=== PATIENT | female | born 1965 | race Hispanic/Latino ===

== ENCOUNTER 2016-11-10 09:00 | Day surgery (SDC) | payer BC, OTHER ==
[~2016-11-10] VITALS: Ht 157.5 cm; Wt 97.0 kg
[~2016-11-10 09:00] MED LIST: LACTATED RINGERS 1,000 ML IV SCH; SODIUM CHLORIDE FLUSH 3 ML SYR IV PRN
[2016-11-10 09:10] VITALS: BP 155/95
[2016-11-10] MEDS ORDERED: ALFENTANIL 500 MCG/ML (ALFENTA) 5 ML AMP IV ONE (10:54)
[2016-11-10] MEDS ORDERED: PROPOFOL 20 ML IV ONE (10:54)
[2016-11-10] MEDS ORDERED: MIDAZOLAM 2 MG/2 ML (VERSED) VIAL ONE (10:54)
[2016-11-10] MEDS ORDERED: diphenhydrAMINE 50 MG/ML INJ (BENADRYL) ONE (11:08)
[2016-11-10] MEDS ORDERED: ONDANSETRON 2 MG/ML (Z0FRAN) 2 ML VIAL ONE (11:08)
[2016-11-10 11:32] VITALS: BP 127/74
[2016-11-10 12:23] VITALS: BP 118/48
[2016-11-10 13:02] VITALS: BP 111/61
== END 2016-11-10 13:20 | disposition home or self-care (01) ==
LOC: ASC 09:00
PROVIDERS: ATTEND Surgery
PROC: 0DJD8ZZ Inspection of Lower Intestinal Tract, Via Natural or Artificial Opening Endoscopic (ICD-10-PCS; principal; 2016-11-10)
DX: Z12.11 Encounter for screening for malignant neoplasm of colon (principal); I10 Essential (primary) hypertension; E66.9 Obesity, unspecified; Z68.41 Body mass index [BMI] 40.0-44.9, adult
CPT/HCPCS: 45378; J1200; J2250; J2405; J7120